=== PATIENT | male | born 1930 | race Caucasian/White ===

== ENCOUNTER → 2016-03-19 | Outpatient (CLI) | payer MEDICARE ==
[~2016-03-19] MED LIST: ASPIRIN 81MG TA81 MG PO; DYAZIDE CAP (M1 EACH; DYAZIDE CAP (M1 EACH PO; ESSENTIAL DAIL1 EACH PO; FIORICET 325 MG1 TAB PO; MULTI VITAMINS1 TAB
[2016-03-19 12:48] LABS: AEROMONAS NOT DETECTED (NOT DETECTE); ASTROVIRUS NOT DETECTED (NOT DETECTE); CYCLOSPORA CAYETANENSIS NOT DETECTED (NOT DETECTE); E COLI O157 NOT DETECTED (NOT DETECTE); ENTEROAGGREGATIVE E COLI NOT DETECTED (NOT DETECTE); ENTEROPATHOGENIC E COLI NOT DETECTED (NOT DETECTE); ENTEROTOXIGENIC E COLI NOT DETECTED (NOT DETECTE); NOROVIRUS NOT DETECTED (NOT DETECTE); SAPOVIRUS NOT DETECTED (NOT DETECTE); SHIGA-LIKE TOXIN PROD. E COLI NOT DETECTED (NOT DETECTE); SHIGELLA/ENTEROINVASIVE E COLI NOT DETECTED (NOT DETECTE); VIBRIO CHOLERAE NOT DETECTED (NOT DETECTE)
[2016-03-19 13:02] LABS: STOOL OCCULT BLOOD NEGATIVE (NEG)
== END ==
LOC: LAB 12:47
PROVIDERS: Family Medicine
DX: R19.7 Diarrhea, unspecified (principal)